=== PATIENT | female | born 1975 | race American Indian/Alaskan Native ===

== ENCOUNTER 2019-10-09 07:33 | Day surgery (SDC) | payer MEDICAID ==
[~2019-10-09 07:33] MED LIST: LACTATED RINGERS 1,000 ML IV SCH; MIDAZOLAM 2 MG/2 ML INJ IV NR
[2019-10-09] MEDS ORDERED: fentaNYL 100 MCG/2 ML INJ IV PRN (08:10)
--- NOTE | 2019-10-09 08:10 | Anesthesia Consultation ---
Anesthesia Consult and Med Hx Date of service: 10/09/19 - Airway Anesthetic Teeth Evaluation: Good (missing teeth) ROM Head & Neck: Adequate Mental/Hyoid Distance: Inadequate Mallampati Class: Class II Intubation Access Assessment: Possibly Difficult - Pulmonary Exam CTA: Yes - Cardiac Exam Cardiac Exam: RRR - Pre-Operative Health Status ASA Pre-Surgery Classification: ASA3 Proposed Anesthetic Plan: General, MAC - Pre-Anesthesia Comment Pre-Anesthesia Comments: GA vs MAC pending discussion with surgeon regarding extent of procedure - Pulmonary Hx Smoking: Yes (quit 3 yrs ago) Hx Asthma: Yes (last inhaler use 2018) Hx Respiratory Symptoms: Yes (hx PE 2015; no longer on coumadin) SOB: No Hx Sleep Apnea: Yes (no CPAP) - Cardiovascular System Hx Hypertension: No Hx Heart Attack/AMI: No Hx Percutaneous Transluminal Coronary Angioplasty (PTCA): No Hx Cardia Arrhythmia: No Hx Peripheral Vascular Disease: No - Central Nervous System Hx Neuromuscular Disorder: No (neuropathy) CVA: No Hx Back Pain: Yes Hx Psychiatric Problems: Yes (PTSD, bipolar) - Endocrine Hx Renal Disease: No Hx Liver Disease: No Hx Non-Insulin Dependent Diabetes: Yes Hx Thyroid Disease: No - Other Systems Hx Obesity: Yes (BMI 43)
--- NOTE | 2019-10-09 08:10 | Anesthesia Day of Surgery ---
Anesthesia Day of Surgery - Day of Surgery Patient Examined: Yes Patient H&P Reviewed: Yes Patient is NPO: Yes
[2019-10-09] MEDS ORDERED: ceFAZolin/STERILE WATER 2 GM/20 ML SYRINGE IV NR (09:14)
[2019-10-09] MEDS ORDERED: LIDOCAINE (1%) 10 MG/1 ML VIAL 20 ML MDV ONE (10:32)
[2019-10-09] MEDS ORDERED: BUPIVACAINE/PF (0.25%) 2.5 MG/ML 30 ML VIAL INFILTRATI ONE ×2 (10:32→11:02)
[2019-10-09] MEDS ORDERED: HYDROmorphone 1 MG/1 ML INJ ONE (10:33)
[2019-10-09] MEDS ORDERED: LIDOCAINE MPF (2%) 20 MG/1 ML VIAL 5 ML ONE (10:33)
[2019-10-09] MEDS ORDERED: ONDANSETRON 4 MG/2 ML INJ ONE (10:33)
[2019-10-09] MEDS ORDERED: propofoL 200 MG/20 ML VIAL IV ONE (10:34)
[2019-10-09] MEDS ORDERED: KETAMINE/STERILE WATER 50 MG/ML SYRINGE ONE (10:57)
[2019-10-09] MEDS ORDERED: LIDOCAINE (1%) 10 MG/1 ML VIAL 20 ML MDV INFILTRATI ONE (11:03)
[2019-10-09] MEDS ORDERED: SODIUM CHLORIDE 0.9% IRR 1,500 ML BOTTLE IR ONE (11:03)
[2019-10-09] MEDS ORDERED: LACTATED RINGERS 1,000 ML ONE (11:44)
--- NOTE | 2019-10-09 11:52 | Short Stay Summary ---
Short Stay Documentation Date of service: 10/09/19 - History Principal diagnosis: soft tissue mass left wrist H&P: obtained from office - Allergies and Medications Current Medications: Allergies latex Allergy (Verified 02/23/15 15:39) Rash sulfamethoxazole [From Bactrim] Allergy (Verified 02/23/15 15:39) Hives trimethoprim [From Bactrim] Allergy (Verified 02/23/15 15:39) Hives venom-honey bee [bee venom (honey bee)] Allergy (Verified 02/23/15 15:39) Shortness of Breath mushrooms Adverse Reaction (Uncoded 02/23/15 15:39) Anaphylaxis Home Medications Medication Instructions Recorded Confirmed Last Taken Type No Known Home Medications [No 10/06/19 10/06/19 Unknown History Reported Home Medications] Active Medications Cefazolin Sodium (Ancef/Sterile Water 2 Gm/20 Ml) 2 gm IV PREOP NR Stop: 10/09/19 23:59 Fentanyl (Sublimaze) 50 mcg IV Q5MIN PRN PRN Reason: Pain , Severe (7-10) Lactated Ringer's (Lactated Ringers) 1,000 mls @ 100 mls/hr IV DIRECT GM Stop: 10/09/19 23:59 Last Admin: 10/09/19 08:50 Dose: 100 mls/hr Documented by: Midazolam HCl (Versed) 2 mg IV PREOP NR Stop: 10/09/19 23:59 Last Admin: 10/09/19 08:55 Dose: 2 mg Documented by: - Brief post op/procedure progress note Date of procedure: 10/09/19 Pre-op diagnosis: left wrist soft tissue mass Post-op diagnosis: same Procedure: excision soft tissue mass left wrist Anesthesia: MAC, local Findings: lobulated soft tissue mass of dorsal aspect of left wrist Surgeon: JULIANNE GREGORY Estimated blood loss: minimal Pathology: list (STM left wrist) Specimen disposition: to lab Condition: stable - Hospital course Hospital course: Pt observed in PACU and discharged to home in stable condition. - Disposition Condition at discharge: Good Disposition: DC-[id number] TO HOME OR SELFCARE Short Stay Discharge Plan Activity: other (avoid flexing wrist) Diet: regular Wound: per your surgeon's advice, other (remove GENTE wrap tomorrow. May shower, pat incision dry. Do not scrub. Wear GENET wrap daily,) Follow up with: PRIMARY CARE, [Primary Care Provider] - 7 Days JULIANNE GREGORY DO [Staff Physician] - 10 Days Prescriptions: HYDROcodone/APAP 5-325 [[place] 5/325] 1 each PO Q6HR PRN #10 tablet PRN Reason: Pain
--- NOTE | 2019-10-09 11:59 | Operative Report ---
Operative Report Operative Report: Date of procedure: 10/09/19 Pre-op diagnosis: left wrist soft tissue mass Post-op diagnosis: same Procedure: excision soft tissue mass left wrist Anesthesia: MAC, local Findings: lobulated soft tissue mass of dorsal aspect of left wrist Surgeon: JULIANNE GREGORY Estimated blood loss: minimal Pathology: list (STM left wrist) Specimen disposition: to lab Condition: stable - Hospital course Hospital course: Pt observed in PACU and discharged to home in stable condition HPI and indication: Patient is a 44-year-old female who presented to the surgery clinic for evaluation of a soft tissue mass of her left dorsal wrist. The patient states that it been present for some time and was causing pain. She had a similar soft tissue mass on the right wrist in the same location several years ago which was excised with resolution of her symptoms. 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 Was recommended the patient undergo excision. All risks and benefits, alternatives to surgery discussed with the patient questions answered. Consent obtained Received in detail: Patient was identified in the preoperative area, take back to operating room and placed on the operating room table in supine position. After anesthesia was induced the left forearm and hand were prepped and draped in usual sterile fashion a timeout performed. Local anesthetic was infiltrated to skin at the intended incision site. A 3 cm transverse incision was made over the area of the soft tissue mass using a 15 blade. Dissection was carried down through the skin and subcutaneous tissue using Bovie electrocautery until the area of the mass was encountered. The soft tissue mass was lobulated. The mass was carefully dissected free from the surrounding and underlying tissue using a combination of blunt dissection with a mosquito clamp, forcep, scissors, and electrocautery. No nerves were encountered during the dissection. The mass was removed in multiple pieces and the aggregate specimen measured approximately 3 cm. Once the entire mass was removed, the wound was checked for hemostasis. The wound was irrigated and any bleeding controlled with electrocautery and pressure. After hemostasis was carefully ensured, the wound was closed in a layered fashion. The deep layer was closed with interrupted 3-0 Vicryl suture. The skin was approximated using 4-0 Monocryl subcuticular stitch and skin glue. Once the skin glue was dry a 2 x 2 gauze was placed over the incision and this was wrapped loosely with an Nelson wrap. Once the patient was awoken from anesthesia, her sensation and motor function of the wrist and hand was tested and intact. At the end of the case, all sponge, instrument, sharp counts were correct x2. Patient was taken to PACU in stable condition.
--- NOTE | 2019-10-09 12:27 | Post Anesthesia Evaluation ---
- Post Anesthesia Evaluation Patient Participated: Yes Airway Patent: Yes Stable Respiratory Function: Yes Nausea/Vomiting: No Temp > 96.8F: Yes Pain Manageable: Yes Adequeate Hydration: Yes Anesthesia Complications: No
[2019-10-09 14:08] VITALS: BP 124/74
== END 2019-10-09 07:34 | disposition home or self-care (01) ==
LOC: OR 07:33
PROVIDERS: ATTEND Surgery
DX: D17.22 Benign lipomatous neoplasm of skin and subcutaneous tissue of left arm (principal); M79.89 Other specified soft tissue disorders; Z11.59 Encounter for screening for other viral diseases; D64.9 Anemia, unspecified; E11.9 Type 2 diabetes mellitus without complications; E66.01 Morbid (severe) obesity due to excess calories; H40.9 Unspecified glaucoma; G43.909 Migraine, unspecified, not intractable, without status migrainosus; J45.909 Unspecified asthma, uncomplicated; K21.9 Gastro-esophageal reflux disease without esophagitis; M79.7 Fibromyalgia; M19.90 Unspecified osteoarthritis, unspecified site; F31.9 Bipolar disorder, unspecified; F41.9 Anxiety disorder, unspecified; Z82.5 Family history of asthma and other chronic lower respiratory diseases; Z91.81 History of falling; Z91.040 Latex allergy status; Z79.899 Other long term (current) drug therapy; Z87.891 Personal history of nicotine dependence; Z79.01 Long term (current) use of anticoagulants; Z68.41 Body mass index [BMI] 40.0-44.9, adult; Z86.711 Personal history of pulmonary embolism; Z90.710 Acquired absence of both cervix and uterus; Z98.891 History of uterine scar from previous surgery; Z72.89 Other problems related to lifestyle; Z98.890 Other specified postprocedural states; Z86.2 Personal history of diseases of the blood and blood-forming organs and certain disorders involving the immune mechanism
CPT/HCPCS: 25071; 82962; 88307; J0690; J1170; J2250; J2405; J2704; J3490; J7120; U0003

== ENCOUNTER 2020-06-04 11:11 | Outpatient (CLI) | payer MEDICAID ==
--- NOTE | 2020-06-04 12:26 | XRay Report ---
RIGHT FOREARM 2 VIEWS INDICATION: Pain in right forearm. COMPARISON: None. IMPRESSION: No acute osseous or soft tissue abnormality. Lead that RIGHT ELBOW 3 VIEWS INDICATION: PAIN IN RIGHT ELBOW. COMPARISON: None. IMPRESSION: No acute osseous or soft tissue abnormality. Minimal osteoarthritic changes are ident ified. Focal, smooth calcification overlie the insertion site of the extensor tendons overlying the l ateral epicondyles the distal humerus which could represent calcific tendinitis. Correlate with the p atient's symptoms. Signer Name: Jasmeet Everett Jr, MD Signed: 06/04/2020 12:22 PM Workstation Name: [id number]
== END 2020-06-04 11:12 | disposition home or self-care (01) ==
LOC: XRAY 11:11
PROVIDERS: ATTEND Orthopaedic Surgery
DX: M19.021 Primary osteoarthritis, right elbow (principal)

== ENCOUNTER 2020-11-10 08:32 | Outpatient (CLI) | payer MEDICAID ==
--- NOTE | 2020-11-10 09:50 | Vascular Lab Report ---
DUPLEX DOPPLER LOWER EXTREMITY VEINS, RIGHT INDICATION: PAIN IN RIGHT KNEE;PAIN IN RIGHT LEG M25.561 M79.604. TECHNIQUE: Duplex doppler imaging was performed through the veins of the right lower extremity using venous comp ression and other maneuvers. COMPARISON: No relevant prior imaging study available. FINDINGS: Right Common femoral vein: Negative. Right Superficial femoral vein: Negative. Right Popliteal vein: Negative. Right Calf veins: Negative. Additional findings: None.. IMPRESSION: 1. No sonographic evidence for DVT in the right lower extremity. Signer Name: Jose Manuel Lombardi MD Signed: 11/10/2020 9:46 AM Workstation Name: [id number]
== END 2020-11-10 08:33 | disposition home or self-care (01) ==
LOC: VAS 08:32
PROVIDERS: ATTEND Surgery
DX: M25.561 Pain in right knee (principal); M79.604 Pain in right leg